=== PATIENT | male | born 1940 | race Caucasian/White ===

== ENCOUNTER 2020-09-28 16:16 | Emergency (ER) | payer MEDICARE ==
[~2020-09-28] VITALS: Ht 182.9 cm; Wt 48.6 kg
[2020-09-28 17:02] VITALS: BP 124/67
--- NOTE | 2020-09-28 17:33 | RAD ---
Exam: CT head and cervical spine without contrast INDICATION: Fall, anterior forehead TECHNIQUE: Sequential axial images through the head and cervical spine were obtained without the administration of IV contrast. Comparisons: None FINDINGS: Head: No focal parenchymal lesion or hemorrhage is identified. There is no midline shift or sulcal effacement. Patchy hypodensity in the periventricular white matter. No acute vascular territory infarction is identified. Wallace-white distinction is preserved. The ventricular system is within normal limits without compression hydrocephalus. The basal cisterns are well maintained. The visualized portions of the paranasal sinuses and mastoid air cells are well-pneumatized. No acute fractures. Cervical spine: Vertebral body heights are well-maintained. Grade 1 anterolisthesis of C3 on C4 and C4 on C5. Fracture to the cervical spine is not identified. Multilevel spondylotic change in cervical spine with degenerative disc disease greatest at C5-C6 and C6-C7. Mild bilateral facet arthropathy is also noted. There is a central disc protrusion at C3-C4 causing mild spinal canal compression. Visualized paraspinal soft tissues are unremarkable. IMPRESSION: 1. No acute intracranial abnormality. 2. Negative CT C-spine for acute traumatic injury. Exposure: One or more of the following in the visualized dose reduction techniques were utilized for this examination: 1. Automated exposure control 2. Adjustment of the MA and/or KV according to patient size Use of iterative of reconstructive technique Electronically signed by: Oh Herron MD (09/28/2020 5:30 PM) [facility]
--- NOTE | 2020-09-28 17:56 | PHYS DOC ---
Past History Past Medical History: No Pertinent History Past Surgical History: No Surgical History Alcohol Use: Occasionally Adult General Chief Complaint Chief Complaint: MECHANICAL FALL HPI HPI Patient is a 80-year-old male who presents status post fall. This fall was not directly observed but was observed on CCTV cameras at patient's residence, he currently lives with daughter. Daughter is at bedside and reports patient was seen suffering a mechanical fall tripping over his feet outside and falling forward bracing his fall with his hands before hitting his head on the brick pavement. No loss of consciousness observed, patient was immediately able to get up and ambulate where he was found by his daughter with a nose laceration. EMS was subsequently called to retrieve patient and present to our ER for evaluation. Patient has known known medical diagnoses, does not take any medications daily, no blood thinners. Has no complaints at present, reports mild discomfort to bridge of nose without any other abnormalities Review of Systems Review of Systems Fourteen body systems of review of systems have been reviewed. See HPI for pertinent positives and negative responses, other morgan all other systems are negative, non-pertinent or non-contributory Allergies Allergies Allergies Coded Allergies Type Severity Reaction Last Updated Verified No Known Drug Allergies 09/28/20 No Physical Exam Physical Exam Constitutional: Pt is oriented to person, place, and time. Pt appears well-devel oped and well-nourished. HENT: Head: Normocephalic and atraumatic. Mouth/Throat: Oropharynx is clear and dry. Poor dentition No hematomas or lacerations or abrasions to face or scalp OP clear, no blood, no malocclusion, dentition intact Nares clear, no nasal septal hematoma. Bridge of nose has mild less than 1 cm horizontal laceration without significant subcutaneous involvement and/or jagged edges. No foreign body TMs clear, no hemotympanum, negative nathan sign Midface stable Eyes: Conjunctivae and EOM are normal. Pupils are equal, round, and reactive to light. Neck: C-spine midline nontender, no step-offs Cardiovascular: Normal rate, regular rhythm and normal heart sounds. Pulmonary/Chest: Effort normal and breath sounds normal. No respiratory distress . No wheezes. CTA bilaterally Abdominal: Soft. Bowel sounds are normal. Pt exhibits no distension. There is no tenderness. Musculoskeletal: No bony tenderness to extremities, no deformities, full ROM extremities Chest wall stable Pelvis stable and non-tender No vertebral TTP and spine without stepoffs Neurological: Pt is alert and oriented to person, place, and time. Moving all extremities willfully, able to wiggle all fingers and toes Alert and oriented x 3, at baseline per patient's daughter who is at bedside Sensation grossly intact. Mild abrasions noted to bilateral knuckles Skin: Skin is warm and dry. No abrasions, no lacerations Psychiatric: Behavior is appropriate for situation Nursing note and vitals reviewed. Current Patient Data Vital Signs Vital Signs Date Time Temp Pulse Resp B/P (MAP) Pulse Ox O2 Delivery O2 Flow Rate FiO2 09/28/20 17:02 97.7 96 18 124/67 (86) 96 Room Air EKG EKG [] Radiology/Procedures Radiology/Procedures PROCEDURE: CT HEAD AND CERVICAL SPINE WO Exam: CT head and cervical spine without contrast INDICATION: Fall, anterior forehead TECHNIQUE: Sequential axial images through the head and cervical spine were obtained without the administration of IV contrast. Comparisons: None FINDINGS: Head: No focal parenchymal lesion or hemorrhage is identified. There is no midline shift or sulcal effacement. Patchy hypodensity in the periventricular white matter. No acute vascular territory infarction is identified. Wallace-white distinction is preserved. The ventricular system is within normal limits without compression hydrocephalus. The basal cisterns are well maintained. The visualized portions of the paranasal sinuses and mastoid air cells are well-pneumatized. No acute fractures. Cervical spine: Vertebral body heights are well-maintained. Grade 1 anterolisthesis of C3 on C4 and C4 on C5. Fracture to the cervical spine is not identified. Multilevel spondylotic change in cervical spine with degenerative disc disease greatest at C5-C6 and C6-C7. Mild bilateral facet arthropathy is also noted. There is a central disc protrusion at C3-C4 causing mild spinal canal compression. Visualized paraspinal soft tissues are unremarkable. IMPRESSION: 1. No acute intracranial abnormality. 2. Negative CT C-spine for acute traumatic injury. Exposure: One or more of the following in the visualized dose reduction techniques were utilized for this examination: 1. Automated exposure control 2. Adjustment of the MA and/or KV according to patient size Use of iterative of reconstructive technique Electronically signed by: Oh Herron MD (09/28/2020 5:30 PM) [facility] Heart Score HEART Score for Chest Pain: HEART Score for Chest Pain Response (Comments) Value History Slighlty/Non-Suspicious 0 ECG Normal 0 Age > 65 2 Total 2 Risk Factors: Risk Factors: DM, Current or recent (<one month) smoker, HTN, HLP, family history of CAD, obesity. Risk Scores: Risk Factors: DM, Current or recent (<one month) smoker, HTN, HLP, family history of CAD, obesity. Course & Med Decision Making Course & Med Decision Making Pertinent Labs and Imaging studies reviewed. (See chart for details) Grossly unremarkable physical exam. Imaging nonconcerning for acute process. Updated tetanus as this was out of date I recommended repair of mild laceration to bridge of nose with sutures but patient declined. I discussed the risk and benefits of declining such intervention with good understanding by patient. He has full capacity to make his decisions at this time. Case discussed with daughter, discussed risk and benefits of not repairing with sutures; however, joint decision between daughter and patient to defer repair. Ultimately, I have no concern that this will not heal well with secondary intention, I did note cosmetically it would be poor Ultimately, patient observed in ER without any alterations in mental status. He will be departing home back to environment full of family 11 support. He will be able to be watched and follow-up with PCP in outpatient setting which I feel is appropriate Strict return precautions were discussed with patient and daughter at bedside with good understanding, all questions and concerns addressed prior to ER departure in stable condition Dragon Disclaimer Dragon Disclaimer This electronic medical record was generated, in whole or in part, using a voice recognition dictation system. Departure Departure: Impression: Primary Impression: Fall Additional Impression: Laceration of nose Disposition: 01 DC HOME SELF CARE/HOMELESS Condition: STABLE Referrals: REBEKAH HAIR MD (PCP) Patient Instructions: Fall Prevention and Home Safety, Laceration Care, Adult, Laceration, Old, Not Sutured Problem Qualifiers SANDRINE DE LA GARZA DO Sep 28, 2020 17:56
[2020-09-28] MEDS ORDERED: DIPH,PERTUSS(ACELL),TET VAC/PF 0.5 ML SYRINGE. VAX IM ONE ×2 (17:59→18:15)
== END 2020-09-28 18:06 | disposition home or self-care (01) ==
LOC: ER 16:16
DX: S01.21XA Laceration without foreign body of nose, initial encounter (principal); W18.09XA Striking against other object with subsequent fall, initial encounter; Y93.89 Activity, other specified; Y92.89 Other specified places as the place of occurrence of the external cause; Y99.8 Other external cause status
CPT/HCPCS: 70450; 72125; 90471; 90715; 99285

== ENCOUNTER 2021-07-07 18:35 | Inpatient (IN) | payer MEDICARE ==
[~2021-07-07] VITALS: Ht 182.9 cm; Wt 46.8 kg
[2021-07-07] MEDS ORDERED: IV NORMAL SALINE 1,000ML 1,000 ML IV ONE ×3 (18:45→22:15)
--- NOTE | 2021-07-07 18:48 | PHYS DOC ---
Past History Past Medical History: No Pertinent History Past Surgical History: No Surgical History Alcohol Use: Occasionally General Adult EDM: Chief Complaint: altered mental state HPI: HPI: Patient is an 81-year-old male with reported history of dementia per family who is not present, presents to the emergency department with delirium, altered mental state, reported failure to thrive. Per EMS, patient is in a nursing facility and appeared to be more lethargic than normal today. He has not been tachycardic upon EMS contact in the 120s. The patient is unable provide any history most likely secondary to his baseline mental status. He has a wound on his face which he says is from "air conditioning- its blowing right now". Furthe r ROS or history impossible to obtain. No family or corroborative history available. Per family, who letter provides a history. The patient was recently treated at [facility] for a skin cancer on the left side of his face where his wound is. He has been noted to not be eating very well, drinking very well or providing for himself very well Review of Systems: Review of Systems: Further ROS is unable to be obtained secondary to patient's clinical condition. Allergies: Allergies: Allergies Coded Allergies Type Severity Reaction Last Updated Verified No Known Drug Allergies 09/28/20 No Physical Exam: PE: Constitutional: Elderly male, appears frail, obviously altered. HENT: Approximately 4 x 4 chronic appearing wound with granulation tissue present to the left cheek area Eyes: PERRLA, EOMI, conjunctiva normal, no discharge. Neck: Normal range of motion, supple, no stridor. Cardiovascular: Tachycardic, 2+ radial pulses Lungs & Thorax: No respiratory distress, symmetrical expansion. Abdomen: Soft, no tenderness Skin: Warm, dry. Extremities: No tenderness, no cyanosis, ROM intact, no edema. Neurologic: Alert and oriented X 0, normal motor function. Obviously confused with non sensical answers to questions. Current Patient Data: Labs: Laboratory Tests Test 07/07/21 19:11 07/07/21 19:26 07/07/21 19:59 07/07/21 21:15 White Blood Count 14.8 x10^3/uL (4.0-11.0) H Red Blood Count 3.15 x10^6/uL (4.30-5.70) L Hemoglobin 9.1 g/dL (13.0-17.5) L Hematocrit 29.2 % (39.0-53.0) L Mean Corpuscular Volume 93 fL (79-100) Mean Corpuscular Hemoglobin 29 pg (25-35) Mean Corpuscular Hemoglobin Concent 31 g/dL (31-37) Red Cell Distribution Width 16.5 % (11.5-14.5) H Platelet Count 443 x10^3/uL (140-400) H Neutrophils (%) (Auto) 66 % (31-73) Lymphocytes (%) (Auto) 31 % (24-48) Monocytes (%) (Auto) 3 % (0-9) Eosinophils (%) (Auto) 0 % (0-3) Basophils (%) (Auto) 0 % (0-3) Neutrophils # (Auto) 9.8 x10^3uL (1.8-7.7) H Lymphocytes # (Auto) 4.5 x10^3/uL (1.0-4.8) Monocytes # (Auto) 0.4 x10^3/uL (0.0-1.1) Eosinophils # (Auto) 0.0 x10^3/uL (0.0-0.7) Basophils # (Auto) 0.0 x10^3/uL (0.0-0.2) Lactic Acid Level 2.9 mmol/L (0.4-2.0) H Magnesium Level 2.4 mg/dL (1.8-2.4) Ammonia 32 mcmol/L (11-34) Creatine Kinase 105 U/L (39-308) Troponin I Quantitative < 0.017 ng/mL (0-0.055) NA-Jhr-X-Type Natriuretic Peptide 1074 pg/mL (0-449) H Glucose (Fingerstick) 112 mg/dL (70-99) H Urine Collection Type Unknown Urine Color [place] Urine Clarity Hazy Urine pH 7.0 Urine Specific [place] 1.020 Urine Protein 100 mg/dl (NEG-TRACE) Urine Glucose (UA) Neg mg/dL (NEG) Urine Ketones (Stick) Trace mg/dL (NEG) Urine Blood Trace (NEG) Urine Nitrite Neg (NEG) Urine Bilirubin Neg (NEG) Urine Urobilinogen Dipstick 0.2 mg/dL (0.2 mg/dL) Urine Leukocyte Esterase Neg (NEG) Urine RBC 1-2 /HPF (0-2) Urine WBC Rare /HPF (0-4) Urine Squamous Epithelial Cells Occ /LPF Urine Bacteria 0 /HPF (0-FEW) Sodium Level 143 mmol/L (136-145) Potassium Level 3.6 mmol/L (3.5-5.1) Chloride Level 105 mmol/L (98-107) Carbon Dioxide Level 28 mmol/L (21-32) Anion Gap 10 (6-14) Blood Urea Nitrogen 16 mg/dL (8-26) Creatinine 0.7 mg/dL (0.7-1.3) Estimated GFR (Cockcroft-Gault) 108.2 BUN/Creatinine Ratio 23 (6-20) H Glucose Level 112 mg/dL (70-99) H Calcium Level 8.8 mg/dL (8.5-10.1) Total Bilirubin 0.2 mg/dL (0.2-1.0) Aspartate Amino Transferase (AST) 50 U/L (15-37) H Alanine Aminotransferase (ALT) 35 U/L (16-63) Alkaline Phosphatase 100 U/L (46-116) Total Protein 7.0 g/dL (6.4-8.2) Albumin 2.8 g/dL (3.4-5.0) L Albumin/Globulin Ratio 0.7 (1.0-1.7) L Test 07/07/21 22:50 SARS-CoV-2 Antigen (Rapid) Negative (NEGATIVE) Vital Signs: Vital Signs Date Time Temp Pulse Resp B/P (MAP) Pulse Ox O2 Delivery O2 Flow Rate FiO2 07/07/21 21:06 99.5 132 16 134/58 (83) 97 Room Air 07/07/21 21:05 132 16 134/58 (83) 97 Room Air 07/07/21 19:02 99.5 120 18 137/96 (110) 97 Room Air EKG: EKG: Irregularly irregular rhythm rate of 131, left anterior fascicular block. Impression: Abnormal EKG, no STEMI interpreted by meHamzah D.O. Radiology/Procedures: Radiology/Procedures: CT head without contrast dated 07/07/2021 7:03 PM Comparison: 09/28/2020 CLINICAL INDICATION: Altered mental status TECHNIQUE: Contiguous axial imaging of the head was performed from skull base to vertex. One or more of the following individualized dose reduction techniques were utilized for this examination: 1. Automated exposure control 2. Adjustment of the mA and/or kV according to patient size 3. Use of iterative reconstruction technique. FINDINGS: Ventricles and sulci are moderately prominent for age. No midline shift or mass effect. Moderate patchy low density throughout the deep/subcortical periventricular white matter. No hemorrhage or extra-axial collection. Posterior fossa and brainstem unremarkable. Moderate mucosal thickening of the ethmoid air cells. Visualized paranasal sinuses and mastoid air cells are otherwise clear. No apparent calvarial abnormality. IMPRESSION: 1. No evidence of acute intracranial hemorrhage or mass. 2. Moderate chronic small vessel ischemic changes and atrophy. 3. Mild sinus disease. Electronically signed by: Maurice Lujan MD (07/07/2021 7:04 PM) Chest AP portable at 1852: Reason for examination: Altered mental state. The heart size is normal. Mediastinum is unremarkable. Lung almonte are clear. No acute bony abnormalities are seen. Impression: No acute cardiopulmonary disease. Electronically signed by: Galilea Vang MD (07/07/2021 7:04 PM) Heart Score: C/O Chest Pain: N/A Course & Med Decision Making: Course & Med Decision Making Patient with was seen for adult failure to thrive, his labs are as above with abnormal lactic acid, WBC tachycardia. He was given empiric antibiotics, 2 L of fluids, continuous fluids inpatient. Blood cultures were acquired. Patient became agitated in the exam room, attempting to rip out his IV. He was given 1 mg of Ativan for sedation. He was admitted to the hospital in stable condition. He remained tachycardic with unchanged physical exam after fluids with stable blood pressure. Sepsis likely from unknown source. Departure Departure: Impression: Primary Impression: Failure to thrive in adult Additional Impression: Lactic acid acidosis Disposition: ADMITTED INPATIENT Admitting Physician: Prasanna Bridges Condition: STABLE Referrals: REBEKAH HAIR MD (PCP) HAMZAH TOLBERT DO Jul 07, 2021 18:48
--- NOTE | 2021-07-07 19:06 | RAD ---
CT head without contrast dated 07/07/2021 7:03 PM Comparison: 09/28/2020 CLINICAL INDICATION: Altered mental status TECHNIQUE: Contiguous axial imaging of the head was performed from skull base to vertex. One or more of the following individualized dose reduction techniques were utilized for this examinat ion: 1. Automated exposure control 2. Adjustment of the mA and/or kV according to patient size 3. Use of iterative reconstruction technique. FINDINGS: Ventricles and sulci are moderately prominent for age. No midline shift or mass effect. Moderate patc hy low density throughout the deep/subcortical periventricular white matter. No hemorrhage or extra-a xial collection. Posterior fossa and brainstem unremarkable. Moderate mucosal thickening of the ethmoid air cells. Visualized paranasal sinuses and mastoid air ce lls are otherwise clear. No apparent calvarial abnormality. IMPRESSION: 1. No evidence of acute intracranial hemorrhage or mass. 2. Moderate chronic small vessel ischemic changes and atrophy. 3. Mild sinus disease. Electronically signed by: Maurice Lujan MD (07/07/2021 7:04 PM) [facility]
--- NOTE | 2021-07-07 19:07 | RAD ---
Chest AP portable at 1852: Reason for examination: Altered mental state. The heart size is normal. Mediastinum is unremarkable. Lung almonte are clear. No acute bony abnormali ties are seen. Impression: No acute cardiopulmonary disease. Electronically signed by: Galilea Vang MD (07/07/2021 7:04 PM) [facility]
[2021-07-07 19:31] LABS: BASO % 0 % (0-3); EOS % 0 % (0-3); HEMATOCRIT 29.2 % (39.0-53.0); HEMOGLOBIN 9.1 g/dL (13.0-17.5); LYMPH # 4.5 x10^3/uL (1.0-4.8); LYMPH % 31 % (24-48); MEAN CORPUSCULAR HEMOGLOBIN 29 pg (25-35); MEAN CORPUSCULAR HGB CONC 31 g/dL (31-37); MEAN CORPUSCULAR VOLUME 93 fL (79-100); MONO # 0.4 x10^3/uL (0.0-1.1); MONO % 3 % (0-9); NEUT # 9.8 x10^3uL (1.8-7.7); NEUT % 66 % (31-73); PLATELET COUNT 443 x10^3/uL (140-400); RED BLOOD COUNT 3.15 x10^6/uL (4.30-5.70); RED CELL DISTRIBUTION WIDTH 16.5 % (11.5-14.5); WHITE BLOOD COUNT 14.8 x10^3/uL (4.0-11.0)
--- NOTE | 2021-07-07 20:08 | EKG ---
[facility] [address] [place] [address] Test Date: 2021-07-07 Test Time: 19:44:36 Pat Name: VONDA LINK Department: Room: Gender: M Pear Picker: : [phone] Requested By: HAMZAH TOLBERT Order Number: [id number] Reading MD: Measurements Intervals [place] Rate: 131 P: MO: QRS: -75 QRSD: 118 T: 69 QT: 320 QTc: 478 Interpretive Statements IRREGULAR RHYTHM, NO P-WAVE FOUND VENTRICULAR PREMATURE COMPLEX(ES) ABNORMAL LEFT AXIS DEVIATION LEFT ANTERIOR FASCICULAR BLOCK RVH WITH REPOLARIZATION ABNORMALITY QRS(T) CONTOUR ABNORMALITY CONSIDER ANTEROSEPTAL MYOCARDIAL DAMAGE ABNORMAL ECG RI6.02 No previous ECG available for comparison
[2021-07-07 20:10] LABS: MAGNESIUM 2.4 mg/dL (1.8-2.4)
[2021-07-07] MEDS ORDERED: PIP/TAZO PER PHARMACY MC PRN (20:30)
[2021-07-07] MEDS ORDERED: IV NORMAL SALINE 50ML 50 ML ONE (20:54)
[2021-07-07] MEDS ORDERED: PIPERACILLIN/TAZOBACTAM 3.375 GM VIAL IV ONE (20:55)
[2021-07-07] MEDS: PIPERACILLIN/TAZOBACTAM 3.375 GM in IV NORMAL SALINE 50ML 50 ML IV SCH (20:59)
[2021-07-07 21:12] LABS: BACTERIA,URINE 0 /HPF (0-FEW); BILIRUBIN,URINE NEG (NEG); CLARITY,URINE HAZY; COLOR,URINE AMBER; GLUCOSE,URINE NEG (NEG); NITRITE,URINE NEG (NEG); SQUAMOUS EPITHELIAL CELL,UR OCC /LPF; UROBILINOGEN,URINE 0.2 mg/dL (0.2 mg/dL); WBC,URINE RARE /HPF (0-4)
[2021-07-07 21:23] LABS: CALCIUM 8.8 mg/dL (8.5-10.1); CREATININE 0.7 mg/dL (0.7-1.3); GFR 108.2; POTASSIUM 3.6 mmol/L (3.5-5.1)
[2021-07-07 21:28] LABS: ALBUMIN 2.8 g/dL (3.4-5.0); ALBUMIN/GLOBULIN RATIO 0.7 (1.0-1.7); TOTAL BILIRUBIN 0.2 mg/dL (0.2-1.0)
[2021-07-07] MEDS ORDERED: VANCOMYCIN PER PHARMACY MC PRN (22:15)
[2021-07-07] MEDS ORDERED: ONDANSETRON PF 4 MG/2 ML VIAL. IVP PRN (22:15)
[2021-07-07] MEDS ORDERED: VANCOMYCIN 1.25 GM in IV NORMAL SALINE 250ML 250 ML IV ONE (22:30)
[2021-07-08 00:35] VITALS: BP 140/72
[2021-07-08] MEDS: PIPERACILLIN/TAZOBACTAM 3.375 GM in IV NORMAL SALINE 50ML 50 ML IV SCH ×4 (01:02→20:48)
[2021-07-08 05:33] VITALS: BP 115/70
[2021-07-08 06:21] LABS: BASO % 0 % (0-3); EOS % 0 % (0-3); HEMATOCRIT 27.9 % (39.0-53.0); HEMOGLOBIN 8.5 g/dL (13.0-17.5); LYMPH # 4.6 x10^3/uL (1.0-4.8); LYMPH % 29 % (24-48); MEAN CORPUSCULAR HEMOGLOBIN 28 pg (25-35); MEAN CORPUSCULAR HGB CONC 31 g/dL (31-37); MEAN CORPUSCULAR VOLUME 91 fL (79-100); MONO # 0.4 x10^3/uL (0.0-1.1); MONO % 3 % (0-9); NEUT # 10.7 x10^3uL (1.8-7.7); NEUT % 68 % (31-73); PLATELET COUNT 455 x10^3/uL (140-400); RED BLOOD COUNT 3.05 x10^6/uL (4.30-5.70); RED CELL DISTRIBUTION WIDTH 16.6 % (11.5-14.5); WHITE BLOOD COUNT 15.8 x10^3/uL (4.0-11.0)
[2021-07-08 06:27] LABS: CALCIUM 8.2 mg/dL (8.5-10.1); CREATININE 0.6 mg/dL (0.7-1.3); GFR 129.3; POTASSIUM 3.4 mmol/L (3.5-5.1)
--- NOTE | 2021-07-08 10:05 | HP ---
ADMIT DATE: 07/07/2021 ATTENDING PHYSICIAN: Dr. Bridges. CHIEF COMPLAINT: Failure to thrive, obtundation. HISTORY OF PRESENT ILLNESS: The patient is an 81-year-old gentleman who is in decline. He has delirium, altered mentation. The family reported failure to thrive. He is not eating. He is cachectic. He has had recent skin cancer on the left side of his face removed. Cultures were drawn. He was started on empiric antibiotics. I am trying to contact the family as to get his history. He has been in the senior care, but he came from home. He is a DNR per advanced directive. PAST MEDICAL HISTORY: Significant for profound dementia, cachexia and generalized debilitation. ALLERGIES: He has no known drug allergies. CURRENT MEDICATIONS: Unknown. SOCIAL HISTORY: Unable to obtain. FAMILY HISTORY: Unobtainable. REVIEW OF SYSTEMS: Unobtainable. PHYSICAL EXAMINATION: GENERAL: When I saw him, this is a cachectic, elderly gentleman curled up in a position. VITAL SIGNS: Initial vital signs showed a blood pressure 115/70 mmHg, pulse is 119, temperature 101.6 degrees Fahrenheit, oxygen saturation 92%. HEENT: Head is without trauma. Pupils are reactive. Oropharynx clear. There is a wound over the of the left cheek, which is bandaged. NECK: Supple. No stridor or rhonchi. LUNGS: Shallow respirations. CARDIOVASCULAR: Regular heart tones. No gallop. ABDOMEN: Soft. EXTREMITIES: Without edema. NEUROLOGIC: Profoundly confused. PERTINENT LABORATORY AND X-RAY STUDIES: The CT of the head showed no acute stroke, chronic white matter changes and small vessel disease. Chest x-ray was clear. His creatinine was 0.7 mg/dL. Hemoglobin 9.1 grams, white count 14,000. Sodium 143, potassium 3.4 mEq. ASSESSMENT: 1. An 81-year-old gentleman with altered mentation. 2. Febrile process, most likely urinary tract infection. 3. Profound dementia. 4. Cachexia. 5. Failure to thrive. PLAN: 1. Admit to the inpatient unit. 2. Empiric antibiotics. 3. IV hydration. 4. He is a DNR per advanced directives. 5. I will try to contact the daughter as to what their expectations are. KRISTINE/PORFIRIO DR: KRISTINE/tucker TID: [id number] CC: Reji Anderson
[2021-07-08] MEDS: ENOXAPARIN 30 MG/0.3 ML SYRINGE. SQ SCH (10:38)
[2021-07-08 13:00] VITALS: BP 134/54
[2021-07-08 15:52] VITALS: BP 140/59
[2021-07-08] MEDS ORDERED: ACETAMINOPHEN 650 MG SUPP.RECT. PR PRN (18:00)
[2021-07-08] MEDS ORDERED: DIGOXIN IV 500 MCG/2 ML AMPUL. IV ONE ×4 (20:15→23:15)
[2021-07-08] MEDS: LACTOBACILLUS RHAMNOSUS GG 1 CAPSULE. PO SCH (20:52)
[2021-07-08] MEDS: VANCOMYCIN 750 MG in IV NORMAL SALINE 250ML 250 ML IV SCH (21:29)
[2021-07-08 21:30] VITALS: BP 161/70
[2021-07-08 23:30] VITALS: BP 142/86
[2021-07-09] MEDS: PIPERACILLIN/TAZOBACTAM 3.375 GM in IV NORMAL SALINE 50ML 50 ML IV SCH ×3 (05:34→21:07)
[2021-07-09 06:30] VITALS: BP 142/51
[2021-07-09] MEDS ORDERED: DIGOXIN IV 500 MCG/2 ML AMPUL. IV ONE (08:45)
[2021-07-09] MEDS: ENOXAPARIN 30 MG/0.3 ML SYRINGE. SQ SCH (09:41)
[2021-07-09] MEDS: LACTOBACILLUS RHAMNOSUS GG 1 CAPSULE. PO SCH ×2 (09:41→22:51)
[2021-07-09] MEDS ORDERED: IV NORMAL SALINE 1,000ML 1,000 ML IV SCH (10:45)
[2021-07-09 11:56] VITALS: BP 105/59
--- NOTE | 2021-07-09 14:10 | PN ---
DATE: 07/09/2021 ATTENDING PHYSICIAN: Dr. Bridges. SUBJECTIVE: Obtunded. He is in a position poorly responsive. OBJECTIVE FINDINGS: VITAL SIGNS: Blood pressure this morning is 142/51, heart rate had been up in the 150s. He was given several doses of digitalis last night to slow the heart rate down. It is down to 111 this morning. He was afebrile, oxygen saturation 93% on room air. HEENT: Head is without trauma. Pupils are reactive. The orbit is sunken. NECK: Supple, no bruits. LUNGS: Shallow respirations. CARDIOVASCULAR: Regular heart tones. No gallop. ABDOMEN: Soft. There is no guarding. EXTREMITIES: Showed muscle wasting. There is no edema. NEUROLOGIC: Profoundly confused and debilitated. LABORATORY DATA: His blood cultures 11/22 was positive for gram-positive shayy, which most likelihood is a contaminant. He is on empiric antibiotics. Hemoglobin is diminished. ASSESSMENT: 1. An 81-year-old gentleman with end of life care. 2. Febrile illness. Cultures are pending. 3. Profound dementia. 4. Chronic obstructive pulmonary disease. 5. Chronic alcoholism. 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 PLAN: 1. Comfort measures. 2. The daughter has requested hospice care. 3. We will continue antibiotics for another day. 4. I will arrange logistics for getting back home. KRISTINE/ZAIDA CORTEZ: KRISTINE/tucker TID: [id number]
[2021-07-09 15:30] VITALS: BP 136/62
[2021-07-09 19:54] VITALS: BP 107/57
[2021-07-09 22:04] LABS: VANC TR 7.5 mcg/mL (10.0-20.0)
[2021-07-09] MEDS: VANCOMYCIN 750 MG in IV NORMAL SALINE 250ML 250 ML IV SCH (22:51)
[2021-07-09 23:20] VITALS: BP 171/95
[2021-07-10 04:44] VITALS: BP 176/89
[2021-07-10] MEDS: PIPERACILLIN/TAZOBACTAM 3.375 GM in IV NORMAL SALINE 50ML 50 ML IV SCH ×2 (06:57→16:02)
[2021-07-10] MEDS: LACTOBACILLUS RHAMNOSUS GG 1 CAPSULE. PO SCH (09:00)
[2021-07-10 11:53] VITALS: BP 155/79
[2021-07-10] MEDS: ENOXAPARIN 30 MG/0.3 ML SYRINGE. SQ SCH (12:41)
--- NOTE | 2021-07-10 12:43 | DS ---
DATE OF DISCHARGE: 07/10/2021 ATTENDING PHYSICIAN: Dr. Bridges. FINAL DISCHARGE DIAGNOSES: 1. Altered mentation. 2. Profound dementia. 3. 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 4. Urinary tract infection. 5. Cachexia. 6. Failure to thrive. 7. Generalized debilitation. 8. Protein calorie malnutrition. HISTORY AND PHYSICAL: The patient is an 81-year-old gentleman with end-stage dementia, has altered mentation. Family cannot take care of him. He was admitted for further treatment and evaluation. PHYSICAL EXAMINATION: Please see my dictated note. PERTINENT LABORATORY AND X-RAY STUDIES: Admission hemoglobin was 9.1 grams, white count 14,800. Electrolytes, creatinine of 0.7 mg percent. Transaminases unremarkable. Blood cultures, no growth after 48 hours. COURSE IN HOSPITAL: The patient was admitted. He was started on gentle IV hydration and empiric antibiotics. He was very confused. He was contracted and nonambulatory. I had a long talk with the daughter. At this time, she is agreeable to having the patient discharged home with hospice as end of life care. On the fourth hospital day, arrangements were made with [facility]. The patient will be discharged home for end of life care. No medication at this time. Hospice will have morphine and p.r.n. meds available. His prognosis is terminal. The patient was then discharged from our hospital in stable condition to return home with hospice care and end of life care. Total discharge time is [address]: Nicolas TID: [id number] CC: Dr. Reji Anderson
[2021-07-10 15:39] VITALS: BP 159/79
[2021-07-10] MEDS ORDERED: VANCOMYCIN 1 GM in IV NORMAL SALINE 250ML 250 ML IV SCH (16:00)
== END 2021-07-10 18:30 | disposition hospice, home (50) | DRG 690 ==
LOC: ER 18:35 → 1 SOUTH 22:04
PROVIDERS: ADMIT Hospitalist; ATTEND Hospitalist
DX: N39.0 Urinary tract infection, site not specified (principal); E87.2 Acidosis; Z68.1 Body mass index [BMI] 19.9 or less, adult; R64 Cachexia; E44.1 Mild protein-calorie malnutrition; R65.10 Systemic inflammatory response syndrome (SIRS) of non-infectious origin without acute organ dysfunction; F03.90 Unspecified dementia, unspecified severity, without behavioral disturbance, psychotic disturbance, mood disturbance, and anxiety; R62.7 Adult failure to thrive; Z20.822 Contact with and (suspected) exposure to COVID-19; Z66 Do not resuscitate; Z51.5 Encounter for palliative care; J44.9 Chronic obstructive pulmonary disease, unspecified; F10.26 Alcohol dependence with alcohol-induced persisting amnestic disorder; Z85.828 Personal history of other malignant neoplasm of skin
CPT/HCPCS: 36415; 70450; 71045; 80048; 80053; 80202; 81001; 82140; 82550; 82947; 83605; 83735; 83880; 84484; 85025; 87015; 87040; 87077; 87205; 87426; 93005; 96361; 96374; J1160; J1650; J2060; J2543; J3370; J7050; U0003; 99285-25; J7030